=== PATIENT | female | born 1945 | race Caucasian/White ===

== ENCOUNTER 2019-04-23 01:13 | Outpatient (CLI) | payer MEDICARE, OTHER | END 2019-04-23 01:14 | disposition critical access hospital (66) | LOC: EMS 01:13 | PROVIDERS: ATTEND Surgery | DX: R41.82 Altered mental status, unspecified (principal) | CPT/HCPCS: A0425; A0429 ==

== ENCOUNTER 2019-04-23 01:48 | Inpatient (IN) | payer MEDICARE, OTHER ==
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
[2019-04-23] MEDS ORDERED: SODIUM CHLORIDE 0.9% 1,000 ML IV ONE ×2 (02:09→05:41)
[2019-04-23 02:12] LABS: BASOPHILS % (AUTO) 0.5 %; EOSINOPHILS # (AUTO) 0.1 10^3/uL (0.0-0.7); EOSINOPHILS % (AUTO) 0.6 %; HGB - HEMOGLOBIN 14.4 g/dL (12.0-16.0); LYMPHOCYTES # (AUTO) 2.4 10^3/uL (1.5-3.5); LYMPHOCYTES % (AUTO) 27.7 %; MEAN CORPUSCULAR HEMOGLOBIN 26.2 pg (27.0-31.0); MEAN CORPUSCULAR VOLUME 79.5 fL (81.0-99.0); MEAN PLATELET VOLUME 8.9 fL (7.9-10.8); MONOCYTES # (AUTO) 0.7 10^3/uL (0.0-1.0); MONOCYTES % (AUTO) 8.5 %; NEUTROPHILS # (AUTO) 5.3 10^3/uL (1.5-6.6); NEUTROPHILS % (AUTO) 62.3 %; PLT - PLATELET COUNT 280 10^3/uL (130-450); RED CELL DISTRIBUTION WIDTH 14.9 % (12.0-15.0); WHITE BLOOD COUNT 8.5 x10^3/uL (4.8-10.8)
[2019-04-23 02:28] LABS: GLUCOSE, URINE (UA) NEGATIVE (NEGATIVE); KETONES,URINE (UA) TRACE mg/dL (NEGATIVE); LEUKOCYTE ESTERASE, URINE NEGATIVE (NEGATIVE); NITRITE,URINE NEGATIVE (NEGATIVE); OCCULT BLOOD,URINE TRACE-INTA (NEGATIVE); PROTEIN,URINE NEGATIVE (NEGATIVE); UROBILINOGEN,URINE 0.2 (NORMAL) E.U./dL (NORMAL)
[2019-04-23 02:32] LABS: ALBUMIN/GLOBULIN RATIO 1.2 (1.0-2.2); ALKALINE PHOSPHATASE 60 IU/L (42-121); ALT ALANINE AMINOTRANSFERASE < 10 IU/L (10-60); AST ASPARTATE AMINOTRANSFERASE 15 IU/L (10-42); BILIRUBIN,TOTAL 1.3 mg/dL (0.2-1.0); BUN - BLOOD UREA NITROGEN 40 mg/dL (6-20); CALCIUM 9.8 mg/dL (8.5-10.3); CARBON DIOXIDE - CO2 20 mmol/L (21-32); CHLORIDE 92 mmol/L (101-111); GFR - MDRD 24 (>89); GLUCOSE 107 mg/dL (70-100); LIPASE 44 U/L (22-51); SODIUM 128 mmol/L (135-145); TOTAL PROTEIN 7.4 g/dL (6.7-8.2)
[2019-04-23] MEDS ORDERED: FOLIC ACID INJ 1 MG, THIAMINE INJ 100 MG, MAGNESIUM SULFATE 2 GM, MULTIVITAMIN 10 ML in... IV STA ×5 (02:32)
[2019-04-23 02:39] LABS: BILIRUBIN,URINE NEGATIVE (NEGATIVE); CLARITY,URINE CLEAR (CLEAR); ICTOTEST,URINE NEGATIVE
[2019-04-23] MEDS ORDERED: THIAMINE 100 MG/1 ML 2 ML MDV ONE (02:47)
--- NOTE | 2019-04-23 03:00 | XRAY Report ---
Reason: altered LOC Procedure Date: 04/23/2019 Accession Number: [id number] / [id number] Procedure: XR - Chest 1 View X-Ray CPT Code: 52950 FULL RESULT: EXAM: CHEST RADIOGRAPHY EXAM DATE: 04/23/2019 02:41 AM. CLINICAL HISTORY: Altered LOC. COMPARISON: None. TECHNIQUE: 1 view. FINDINGS: Lungs/Pleura: No focal opacities evident. No pleural effusion. No pneumothorax. Mediastinum: Within exam limitations, the cardiomediastinal contour is normal. Other: None. IMPRESSION: Normal single view chest. RADIA
[2019-04-23] MEDS ORDERED: LORazepam 2 MG/ML VIAL IVP STA (03:42)
--- NOTE | 2019-04-23 04:24 | CT Report ---
Reason: altered LOC Procedure Date: 04/23/2019 Accession Number: [id number] / [id number] Procedure: CT - HEAD WO CPT Code: FULL RESULT: EXAM: CT HEAD EXAM DATE: 04/23/2019 04:05 AM. CLINICAL HISTORY: 74-year-old female with altered level of consciousness. COMPARISON: None. TECHNIQUE: Multiaxial CT images were obtained from the foramen magnum to the vertex. Reformats: Sagittal and coronal. IV contrast: None. In accordance with CT protocol optimization, one or more of the following dose reduction techniques were utilized for this exam: automated exposure control, adjustment of mA and/or KV based on patient size, or use of iterative reconstructive technique. FINDINGS: Parenchyma: No intraparenchymal hemorrhage. No evidence of mass, midline shift, or CT findings of infarction. Caro-white differentiation is distinct. There is moderate to severe chronic microvascular change in the white matter bilaterally. Extraaxial Spaces: There is mild age-related generalized cerebral volume loss. No subdural or epidural collections identified. Ventricles: Normal. No hydrocephalus. Sinuses and Orbits: Imaged paranasal sinuses, orbits, and mastoids show no significant abnormality. Bones: No evidence of fracture or calvarial defect. Other: Atherosclerotic calcification is noted in the carotid siphons bilaterally. IMPRESSION: 1. No acute intracranial abnormality. 2. Moderate to severe chronic microvascular change. 3. No intracranial mass lesion, mass-effect, or hydrocephalus. RADIA
[2019-04-23] MEDS ORDERED: SODIUM CHLORIDE FLUSH 0.9% 10 ML SYRINGE IVP PRN (06:26)
[2019-04-23 07:03] LABS: MUDS CUTOFF CONCENTRATIONS CUTOFF CONC BELOW:
[2019-04-23 07:17] LABS: AMPHETAMINE SCREEN,URINE NEGATIVE (NEGATIVE); BENZODIAZEPINES SCREEN, URINE NEGATIVE (NEGATIVE); COCAINE SCREEN URINE NEGATIVE (NEGATIVE); METHADONE SCREEN, URINE NEGATIVE (NEGATIVE); METHAMPHETAMINES SCREEN, URINE NEGATIVE (NEGATIVE); OPIATE SCREEN, URINE NEGATIVE (NEGATIVE); OXYCODONE SCREEN, URINE NEGATIVE (NEGATIVE); PROPOXYPHENE SCREEN, URINE NEGATIVE (NEGATIVE); TRICYCLIC ANTIDEPRESSANT,URINE NEGATIVE (NEGATIVE)
[2019-04-23] MEDS: SODIUM CHLORIDE FLUSH 0.9% 10 ML SYRINGE IVP SCH ×2 (08:13→17:08)
[2019-04-23] MEDS: POLYETHYLENE GLYCOL 3350 17 GM PACKET PO SCH (08:13)
[2019-04-23] MEDS: SODIUM CHLORIDE 0.9% 1,000 ML IV SCH ×4 (08:14→20:53)
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
[2019-04-23] MEDS ORDERED: IOVERSOL 320 50 ML VIAL ONE (14:08)
--- NOTE | 2019-04-23 15:03 | CT Report ---
Reason: abdominal pain Procedure Date: 04/23/2019 Accession Number: [id number] / [id number] Procedure: CT - Abdomen/Pelvis WO CPT Code: FULL RESULT: EXAM: CT ABDOMEN AND PELVIS (CT KUB) EXAM DATE: 04/23/2019 02:33 PM. CLINICAL HISTORY: Abdominal pain. COMPARISONS: None. TECHNIQUE: Routine axial helical CT imaging was performed through the abdomen and pelvis without IV contrast. Reconstructions: Coronal and sagittal. In accordance with CT protocol optimization, one or more of the following dose reduction techniques were utilized for this exam: automated exposure control, adjustment of mA and/or KV based on patient size, or use of iterative reconstructive technique. FINDINGS: Lung Bases: Unremarkable. Viscera: The patient is status post cholecystectomy. There is symmetric bilateral perinephric fat stranding without calculi or aracelis hydroureteronephrosis. Best seen on image 127 series 3 is a linear grouping of calcifications near the left ureterovesical junction without identifiable upstream hydroureteronephrosis. The noncontrast liver, adrenal glands, spleen, and pancreas are unremarkable. There is no bowel obstruction. There is no free air or free fluid. There is no lymphadenopathy by size criteria. A pessary is noted in the pelvis. Atherosclerotic disease without abdominal aortic aneurysm. Other: None. IMPRESSION: Correlate symmetric bilateral perinephric fat stranding and questionable linear calcifications in the region of the left ureterovesical junction to urinalysis, favor vascular etiology of the calcifications. No urinary obstruction is identified. RADIA
[2019-04-23] MEDS ORDERED: LORazepam 0.5 MG TABLET PO PRN (17:14)
[2019-04-24] MEDS ORDERED: amLODIPine 5 MG TABLET ONE (05:44)
[2019-04-24] MEDS ORDERED: SODIUM CHLORIDE 0.9% 1,000 ML IV SCH (09:00)
[2019-04-24] MEDS ORDERED: METOPROLOL SUCCINATE 25 MG TABLET PO SCH (09:00)
[2019-04-24] MEDS: SODIUM CHLORIDE FLUSH 0.9% 10 ML SYRINGE IVP SCH ×3 (09:19→17:13)
[2019-04-24 09:55] LABS: BASOPHILS % (AUTO) 0.3 %; EOSINOPHILS # (AUTO) 0.1 10^3/uL (0.0-0.7); HGB - HEMOGLOBIN 12.6 g/dL (12.0-16.0); LYMPHOCYTES % (AUTO) 21.4 %; MEAN CORPUSCULAR HEMOGLOBIN 26.6 pg (27.0-31.0); MEAN CORPUSCULAR HGB CONC 32.1 g/dL (32.0-36.0); MEAN CORPUSCULAR VOLUME 82.9 fL (81.0-99.0); MEAN PLATELET VOLUME 8.8 fL (7.9-10.8); MONOCYTES # (AUTO) 0.6 10^3/uL (0.0-1.0); NEUTROPHILS # (AUTO) 6.5 10^3/uL (1.5-6.6); PLT - PLATELET COUNT 239 10^3/uL (130-450); RED BLOOD COUNT 4.74 10^6/uL (4.20-5.40); RED CELL DISTRIBUTION WIDTH 15.6 % (12.0-15.0); WHITE BLOOD COUNT 9.2 x10^3/uL (4.8-10.8)
[2019-04-24] MEDS: LISINOPRIL 5 MG TABLET PO SCH (09:55)
[2019-04-24] MEDS: POLYETHYLENE GLYCOL 3350 17 GM PACKET PO SCH (09:55)
[2019-04-24 09:56] LABS: FOLATE 6.36 ng/mL (5.90 - >24.8)
[2019-04-24 10:00] LABS: ALBUMIN 3.2 g/dL (3.2-5.5); ALBUMIN/GLOBULIN RATIO 1.1 (1.0-2.2); ALKALINE PHOSPHATASE 52 IU/L (42-121); ALT ALANINE AMINOTRANSFERASE < 10 IU/L (10-60); AST ASPARTATE AMINOTRANSFERASE 14 IU/L (10-42); BILIRUBIN,TOTAL 0.7 mg/dL (0.2-1.0); BUN - BLOOD UREA NITROGEN 21 mg/dL (6-20); CALCIUM 8.1 mg/dL (8.5-10.3); CARBON DIOXIDE - CO2 22 mmol/L (21-32); CHLORIDE 101 mmol/L (101-111); CREATININE 1.2 mg/dL (0.4-1.0); GFR - MDRD 44 (>89); GLUCOSE 103 mg/dL (70-100); SODIUM 134 mmol/L (135-145); TOTAL PROTEIN 6.1 g/dL (6.7-8.2)
[2019-04-24] MEDS: SODIUM CHLORIDE 0.9% 1,000 ML IV SCH ×2 (11:02→17:13)
--- NOTE | 2019-04-24 16:25 | PROVIDER PROGRESS NOTE ---
Subjective - Prog Note Date Prog Note Date: 04/24/19 - Subjective Pt reports feeling: Improved Subjective: pt is alert and oriented to her self and hospital today, but not the date/time. Zoya Hung tele-psych evaluated pt. as her fax state" consistent with acute delirium", "now starting to improve as underlying issue are being treated", " new onset psychotic disorder would be extremely unlikely given pt's age and lack of prior psychiatric history." Current Medications - Current Medications Current Medications: Active Medications Amlodipine Besylate (Norvasc) 10 mg PO DAILY [facility] Last Admin: 04/25/19 10:31 Dose: Not Given Sodium Chloride (Normal Saline 0.9%) 1,000 mls @ 125 mls/hr IV .Q8H [facility] Stop: 04/26/19 09:59 Lisinopril (Zestril) 5 mg PO DAILY [facility] Last Admin: 04/25/19 10:31 Dose: Not Given Metoprolol Succinate (Toprol Xl) 25 mg PO DAILY [facility] Last Admin: 04/25/19 10:31 Dose: Not Given Olanzapine (Zyprexa Odt) 2.5 mg TL TID PRN PRN Reason: Agitation Polyethylene Glycol (Miralax) 17 gm PO DAILY [facility] Last Admin: 04/25/19 10:31 Dose: Not Given Sodium Chloride (Normal Saline Flush 0.9%) 10 ml IVP PRN PRN PRN Reason: NEEDED PER PROVIDER ORDERS Sodium Chloride (Normal Saline Flush 0.9%) 10 ml IVP 0100,0900,1700 [facility] Last Admin: 04/25/19 15:50 Dose: Not Given Lisinopril 5 mg PO 04/23/19 Nebivolol HCl [Bystolic] 10 mg PO 04/23/19 Objective - Vital Signs/Intake & Output Reviewed Vital Signs: Yes Vital Signs: Vital Signs x48h Temp Pulse Resp BP Pulse Ox 04/24/19 15:54 36.8 C 80 20 143/83 H 100 04/24/19 09:00 36.6 C 79 18 144/118 H 100 Intake & Output: Intake & Output 04/21/19 04/22/19 04/23/19 04/24/19 23:59 23:59 23:59 23:59 Intake Total 5377.7 1350 Output Total 1340 Balance 4037.7 1350 - Objective General Appearance: positive: No acute distress, Alert. negative: Lethargic Eyes Bilateral: positive: Normal inspection, PERRL ENT: positive: ENT inspection nml, Pharynx nml, No signs of dehydration. negative: Purulent nasal drainage, Pharyngeal erythema, Oral lesions Neck: positive: Nml inspection, Thyroid nml, No JVD, Trachea midline. negative: Thyromegaly, Lymphadenopathy (L), Stiff neck, Swelling/bruising, Tracheal deviation Respiratory: positive: Chest non-tender, No respiratory distress, Breath sounds nml. negative: Wheezes, Rales, Rhonchi Cardiovascular: positive: Regular rate & rhythm, No murmur, No gallop. negative: Irregularly irregular, Extrasystoles, Tachycardia, Bradycardia, JVD present, Systolic murmur, Diastolic murmur Peripheral Pulses: 2+ Radial (R), 2+ Radial (L), 2+ Dorsalis pedis (R), 2+ Dorsalis pedis (L) Abdomen: positive: Non-tender, No organomegaly, Nml bowel sounds, No distention. negative: Tenderness, Guarding, Rebound Back: positive: Nml inspection. negative: CVA tenderness (R), CVA tenderness (L) Skin: positive: Color nml, No rash, Warm, Dry. negative: Cyanosis, Diaphoresis, Pallor Extremities: positive: Non-tender, Full ROM, Nml appearance. negative: Calf tenderness, Joint swelling, Yissel's sign/cords Neurologic/Psychiatric: negative: Weakness, Sensory loss, Facial droop, Slurred/abnml speech, Depressed mood/affect - Lab Results Fish Bones: 04/25/19 17:26 04/24/19 08:45 Other Labs: Lab Results x24hrs 04/24/19 04/24/19 04/24/19 Range/Units 09:43 08:45 08:45 WBC 9.2 (4.8-10.8) x10^3/uL RBC 4.74 (4.20-5.40) 10^6/uL Hgb 12.6 (12.0-16.0) g/dL Hct 39.3 (37.0-47.0) % MCV 82.9 (81.0-99.0) fL MCH 26.6 L (27.0-31.0) pg MCHC 32.1 (32.0-36.0) g/dL RDW 15.6 H (12.0-15.0) % Plt Count 239 (130-450) 10^3/uL MPV 8.8 (7.9-10.8) fL Neut # (Auto) 6.5 (1.5-6.6) 10^3/uL Lymph # (Auto) 2.0 (1.5-3.5) 10^3/uL [place] # (Auto) 0.6 (0.0-1.0) 10^3/uL Eos # (Auto) 0.1 (0.0-0.7) 10^3/uL Baso # (Auto) 0.0 (0.0-0.1) 10^3/uL Absolute Nucleated RBC 0.00 x10^3/uL Nucleated RBC % 0.0 /100WBC Sodium (135-145) mmol/L Potassium (3.5-5.0) mmol/L Chloride (101-111) mmol/L Carbon Dioxide (21-32) mmol/L Anion Gap (6-13) BUN (6-20) mg/dL Creatinine (0.4-1.0) mg/dL Estimated GFR (MDRD) (>89) Glucose (70-100) mg/dL Calcium (8.5-10.3) mg/dL Total Bilirubin (0.2-1.0) mg/dL AST (10-42) IU/L ALT (10-60) IU/L Alkaline Phosphatase (42-121) IU/L Total Protein (6.7-8.2) g/dL Albumin (3.2-5.5) g/dL Globulin (2.1-4.2) g/dL Albumin/Globulin Ratio (1.0-2.2) Vitamin B12 1000 H (180-914) pg/mL Folate 6.36 (5.90 - >24.8) ng/mL TSH 2.06 (0.34-5.60) uIU/mL 04/24/19 Range/Units 08:45 WBC (4.8-10.8) x10^3/uL RBC (4.20-5.40) 10^6/uL Hgb (12.0-16.0) g/dL Hct (37.0-47.0) % MCV (81.0-99.0) fL MCH (27.0-31.0) pg MCHC (32.0-36.0) g/dL RDW (12.0-15.0) % Plt Count (130-450) 10^3/uL MPV (7.9-10.8) fL Neut # (Auto) (1.5-6.6) 10^3/uL Lymph # (Auto) (1.5-3.5) 10^3/uL [place] # (Auto) (0.0-1.0) 10^3/uL Eos # (Auto) (0.0-0.7) 10^3/uL Baso # (Auto) (0.0-0.1) 10^3/uL Absolute Nucleated RBC x10^3/uL Nucleated RBC % /100WBC Sodium 134 L (135-145) mmol/L Potassium 3.8 (3.5-5.0) mmol/L Chloride 101 (101-111) mmol/L Carbon Dioxide 22 (21-32) mmol/L Anion Gap 11.0 (6-13) BUN 21 H (6-20) mg/dL Creatinine 1.2 H (0.4-1.0) mg/dL Estimated GFR (MDRD) 44 L (>89) Glucose 103 H (70-100) mg/dL Calcium 8.1 L (8.5-10.3) mg/dL Total Bilirubin 0.7 (0.2-1.0) mg/dL AST 14 (10-42) IU/L ALT < 10 L (10-60) IU/L Alkaline Phosphatase 52 (42-121) IU/L Total Protein 6.1 L (6.7-8.2) g/dL Albumin 3.2 (3.2-5.5) g/dL Globulin 2.9 (2.1-4.2) g/dL Albumin/Globulin Ratio 1.1 (1.0-2.2) Vitamin B12 (180-914) pg/mL Folate (5.90 - >24.8) ng/mL TSH (0.34-5.60) uIU/mL ABX Reporting Has patient been on IV antibiotics over the past 48 hours?: No Sepsis Event Note (H) - Evaluation Current Stage of Sepsis: Ruled out Assessment/Plan - Problem List (1) Psychiatric complaint Impression: 04/24 tele-psych assessed pt to have acute delirium re-orientation frequency, reduced disruption, keep room quite, keep the same nurse staff as possible Pt has not previously been diagnosed with psychiatric condition but pt present more agitation, unstable mental status. consult with psychiatrist with tele-psychiatrist, will followup (2) Dehydration, severe Conclusion/Plan: 04/24 significant improved. creatinine 1.2 now continue hydration, and lab monitor pt present BUN 40, creatinine 2. but pt's report pt did not have hx of kidney problem. report she had a poor intake. it appear from dehydration hydration with IVF of NS lab monitor (3) Hyponatremia Conclusion/Plan: 04/24 significant improved. Na is 134 now continue IVF of NS, lab monitor it appear from pre-rental macho hydration with NS, lab monitor (4) Weakness Conclusion/Plan: 04/24 improved, continue PT/OT pt present severe dehydration, hyponatremia, malnutrition, and weakness consult with PT/OT, will followup (5) Malnutrition Conclusion/Plan: 04/24, consulted with banquet steward, will followup pt is reported nutrition intake less than 50% of recommended intake for 2 weeks or more consult with nutrition, nurse and stall support (6) HTN (hypertension) Conclusion/Plan: 04/24 stable. continue vital monitor pt present HTN with hx of HTN reconcile of home BP meds vital monitor
[2019-04-24] MEDS ORDERED: OLANZapine ODT 5 MG TABLET TL PRN (17:01)
[2019-04-25] MEDS: SODIUM CHLORIDE FLUSH 0.9% 10 ML SYRINGE IVP SCH ×3 (00:48→15:50)
[2019-04-25] MEDS: amLODIPine 5 MG TABLET PO SCH (10:31)
[2019-04-25] MEDS: LISINOPRIL 5 MG TABLET PO SCH (10:31)
[2019-04-25] MEDS: METOPROLOL SUCCINATE 25 MG TABLET PO SCH (10:31)
[2019-04-25] MEDS: POLYETHYLENE GLYCOL 3350 17 GM PACKET PO SCH (10:31)
--- NOTE | 2019-04-25 16:35 | PROVIDER PROGRESS NOTE ---
Subjective - Prog Note Date Prog Note Date: 04/25/19 - Subjective Pt reports feeling: Worse Subjective: pt refused to have lab test for twice. pt is confused today and told me " [place] Nurse report she tried to call police department on last night. Nurse report pt attempted to pull off her IV port, nurse can not treat pt. discussed with pt's two sons. Son state he will come to see her mother and will try persuade pt to followup medical advise [facility] evaluated pt, pt is required to be remained at hospital. [facility] will find mental health institution for pt Current Medications - Current Medications Current Medications: Active Medications Amlodipine Besylate (Norvasc) 10 mg PO DAILY [facility] Last Admin: 04/25/19 10:31 Dose: Not Given Sodium Chloride (Normal Saline 0.9%) 1,000 mls @ 125 mls/hr IV .Q8H DHARMESH Stop: 04/26/19 09:59 Lisinopril (Zestril) 5 mg PO DAILY [facility] Last Admin: 04/25/19 10:31 Dose: Not Given Metoprolol Succinate (Toprol Xl) 25 mg PO DAILY [facility] Last Admin: 04/25/19 10:31 Dose: Not Given Olanzapine (Zyprexa Odt) 2.5 mg TL TID PRN PRN Reason: Agitation Polyethylene Glycol (Miralax) 17 gm PO DAILY [facility] Last Admin: 04/25/19 10:31 Dose: Not Given Sodium Chloride (Normal Saline Flush 0.9%) 10 ml IVP PRN PRN PRN Reason: NEEDED PER PROVIDER ORDERS Sodium Chloride (Normal Saline Flush 0.9%) 10 ml IVP 0100,0900,1700 [facility] Last Admin: 04/25/19 15:50 Dose: Not Given Lisinopril 5 mg PO 04/23/19 Nebivolol HCl [Bystolic] 10 mg PO 04/23/19 Objective - Vital Signs/Intake & Output Vital Signs: Vital Signs x48h Temp Pulse Resp BP Pulse Ox 04/25/19 16:21 36.5 C 105 H 16 108/72 100 Intake & Output: Intake & Output 04/22/19 04/23/19 04/24/19 04/25/19 23:59 23:59 23:59 23:59 Intake Total 5377.7 3118.333 315 Output Total 1340 200 Balance 4037.7 3118.333 115 - Objective General Appearance: positive: No acute distress, Alert. negative: Lethargic Eyes Bilateral: positive: Normal inspection, PERRL, No lid inflammation, Conjunctivae nml ENT: positive: ENT inspection nml, Pharynx nml, No signs of dehydration. negative: Purulent nasal drainage, Pharyngeal erythema, Oral lesions Neck: positive: Nml inspection, Thyroid nml, No JVD, Trachea midline. negative: Thyromegaly, Lymphadenopathy (R), Lymphadenopathy (L), Stiff neck, Swelling/bruising, Tracheal deviation Respiratory: positive: Chest non-tender, No respiratory distress, Breath sounds nml. negative: Wheezes, Rales, Rhonchi Cardiovascular: positive: Regular rate & rhythm, No murmur, No gallop. negative: Irregularly irregular, Extrasystoles, Tachycardia, Bradycardia, JVD present, Systolic murmur, Diastolic murmur Peripheral Pulses: 2+ Radial (R), 2+ Radial (L), 2+ Dorsalis pedis (R), 2+ Dorsalis pedis (L) Abdomen: positive: Non-tender, No organomegaly, Nml bowel sounds, No distention. negative: Tenderness, Guarding, Rebound Back: positive: Nml inspection. negative: CVA tenderness (R), CVA tenderness (L) Skin: positive: Color nml, No rash, Warm, Dry. negative: Cyanosis, Diaphoresis, Pallor Extremities: positive: Non-tender, Full ROM, Nml appearance. negative: Calf tenderness, Joint swelling, Yissel's sign/cords Neurologic/Psychiatric: positive: Sensation nml. negative: Weakness, Sensory loss, Facial droop, Slurred/abnml speech, Depressed mood/affect - Lab Results Fish Bones: 04/26/19 07:06 04/26/19 07:06 ABX Reporting Has patient been on IV antibiotics over the past 48 hours?: No Sepsis Event Note (H) - Evaluation Current Stage of Sepsis: Ruled out Assessment/Plan - Problem List (1) Psychiatric complaint Impression: 04/25 we will followup [facility] instruction to retain pt until find the placement pt refused to treatment, called pt's sons will re-oriented, continue nurse support if pt continue to refused to be treated, this will be harmed to her. pt was diagnosis to have Delirium. According to [facility] instruction, pt may be restrained for treatment. pt's family understood that. 04/24 tele-psych assessed pt to have acute delirium re-orientation frequency, reduced disruption, keep room quite, keep the same nurse staff as possible Pt has not previously been diagnosed with psychiatric condition but pt present more agitation, unstable mental status. consult with psychiatrist with tele-psychiatrist, will followup (2) Dehydration, severe Conclusion/Plan: 04/25 continue hydration with IVF of NC, lab monitor. pt refused to be treated now. will either restrain or family persuade pt to be treated 04/24 significant improved. creatinine 1.2 now continue hydration, and lab monitor pt present BUN 40, creatinine 2. but pt's report pt did not have hx of kidney problem. report she had a poor intake. it appear from dehydration hydration with IVF of NS lab monitor (3) Hyponatremia Conclusion/Plan: 04/25 pt refused to have lab test, called pt's sons, will let pt have lab test 04/24 significant improved. Na is 134 now continue IVF of NS, lab monitor it appear from pre-rental macho hydration with NS, lab monitor (4) Weakness Conclusion/Plan: 04/24 improved, continue PT/OT pt present severe dehydration, hyponatremia, malnutrition, and weakness consult with PT/OT, will followup (5) Malnutrition Conclusion/Plan: 04/24, consulted with manager neonatal, will followup pt is reported nutrition intake less than 50% of recommended intake for 2 weeks or more consult with nutrition, nurse and stall support (6) HTN (hypertension) Conclusion/Plan: 04/24 stable. continue vital monitor pt present HTN with hx of HTN reconcile of home BP meds vital monitor
[2019-04-25 17:36] LABS: BASOPHILS # (AUTO) 0.1 10^3/uL (0.0-0.1); BASOPHILS % (AUTO) 0.4 %; EOSINOPHILS % (AUTO) 0.1 %; HGB - HEMOGLOBIN 14.2 g/dL (12.0-16.0); LYMPHOCYTES # (AUTO) 1.5 10^3/uL (1.5-3.5); LYMPHOCYTES % (AUTO) 12.1 %; MEAN CORPUSCULAR HEMOGLOBIN 27.7 pg (27.0-31.0); MEAN CORPUSCULAR HGB CONC 33.6 g/dL (32.0-36.0); MEAN CORPUSCULAR VOLUME 82.3 fL (81.0-99.0); MEAN PLATELET VOLUME 8.6 fL (7.9-10.8); MONOCYTES # (AUTO) 0.7 10^3/uL (0.0-1.0); MONOCYTES % (AUTO) 5.5 %; NEUTROPHILS % (AUTO) 81.3 %; PLT - PLATELET COUNT 284 10^3/uL (130-450); RED BLOOD COUNT 5.13 10^6/uL (4.20-5.40); RED CELL DISTRIBUTION WIDTH 15.8 % (12.0-15.0); WHITE BLOOD COUNT 12.3 x10^3/uL (4.8-10.8)
[2019-04-25 17:58] LABS: ALBUMIN 4.1 g/dL (3.2-5.5); ALBUMIN/GLOBULIN RATIO 1.1 (1.0-2.2); ALKALINE PHOSPHATASE 74 IU/L (42-121); ALT ALANINE AMINOTRANSFERASE < 10 IU/L (10-60); AST ASPARTATE AMINOTRANSFERASE 19 IU/L (10-42); BILIRUBIN,TOTAL 1.6 mg/dL (0.2-1.0); BUN - BLOOD UREA NITROGEN 17 mg/dL (6-20); CALCIUM 9.5 mg/dL (8.5-10.3); CARBON DIOXIDE - CO2 21 mmol/L (21-32); CHLORIDE 102 mmol/L (101-111); CREATININE 1.7 mg/dL (0.4-1.0); GFR - MDRD 30 (>89); GLUCOSE 131 mg/dL (70-100); SODIUM 135 mmol/L (135-145); TOTAL PROTEIN 7.7 g/dL (6.7-8.2)
[2019-04-25] MEDS ORDERED: SODIUM CHLORIDE 0.9% 1,000 ML IV SCH (18:00)
[2019-04-25] MEDS ORDERED: LORazepam 2 MG/ML VIAL IVP PRN (21:43)
[2019-04-25] MEDS ORDERED: OLANZapine ODT 5 MG TABLET TL PRN (21:44)
[2019-04-25] MEDS: SODIUM CHLORIDE 0.9% 1,000 ML IV SCH (23:40)
[2019-04-26] MEDS: SODIUM CHLORIDE FLUSH 0.9% 10 ML SYRINGE IVP SCH ×3 (01:19→17:43)
[2019-04-26] MEDS: SODIUM CHLORIDE 0.9% 1,000 ML IV SCH ×3 (06:54→21:36)
[2019-04-26 07:13] LABS: BASOPHILS % (AUTO) 0.5 %; EOSINOPHILS # (AUTO) 0.1 10^3/uL (0.0-0.7); EOSINOPHILS % (AUTO) 0.9 %; HGB - HEMOGLOBIN 12.1 g/dL (12.0-16.0); LYMPHOCYTES # (AUTO) 2.1 10^3/uL (1.5-3.5); LYMPHOCYTES % (AUTO) 26.4 %; MEAN CORPUSCULAR HEMOGLOBIN 27.9 pg (27.0-31.0); MEAN CORPUSCULAR HGB CONC 33.9 g/dL (32.0-36.0); MEAN CORPUSCULAR VOLUME 82.4 fL (81.0-99.0); MEAN PLATELET VOLUME 8.5 fL (7.9-10.8); MONOCYTES # (AUTO) 0.6 10^3/uL (0.0-1.0); MONOCYTES % (AUTO) 7.1 %; NEUTROPHILS # (AUTO) 5.1 10^3/uL (1.5-6.6); NEUTROPHILS % (AUTO) 64.8 %; PLT - PLATELET COUNT 213 10^3/uL (130-450); RED BLOOD COUNT 4.33 10^6/uL (4.20-5.40); WHITE BLOOD COUNT 7.8 x10^3/uL (4.8-10.8)
[2019-04-26 07:33] LABS: ALBUMIN 3.2 g/dL (3.2-5.5); ALKALINE PHOSPHATASE 61 IU/L (42-121); ALT ALANINE AMINOTRANSFERASE < 10 IU/L (10-60); AST ASPARTATE AMINOTRANSFERASE 15 IU/L (10-42); BILIRUBIN,TOTAL 1.1 mg/dL (0.2-1.0); BUN - BLOOD UREA NITROGEN 22 mg/dL (6-20); CALCIUM 8.7 mg/dL (8.5-10.3); CARBON DIOXIDE - CO2 22 mmol/L (21-32); CHLORIDE 104 mmol/L (101-111); GFR - MDRD 24 (>89); GLUCOSE 82 mg/dL (70-100); SODIUM 138 mmol/L (135-145); TOTAL PROTEIN 6.5 g/dL (6.7-8.2)
[2019-04-26] MEDS: METOPROLOL SUCCINATE 25 MG TABLET PO SCH (08:02)
[2019-04-26] MEDS: amLODIPine 5 MG TABLET PO SCH (08:02)
[2019-04-26] MEDS: LISINOPRIL 5 MG TABLET PO SCH (08:02)
[2019-04-26] MEDS: POLYETHYLENE GLYCOL 3350 17 GM PACKET PO SCH (08:04)
--- NOTE | 2019-04-26 12:56 | PROVIDER PROGRESS NOTE ---
Subjective - Prog Note Date Prog Note Date: 04/26/19 - Subjective Subjective: pt is still some confused. pt agree to have treatment for her now. Current Medications - Current Medications Current Medications: Active Medications Amlodipine Besylate (Norvasc) 10 mg PO DAILY [facility] Last Admin: 04/26/19 08:02 Dose: 10 mg Sodium Chloride (Normal Saline 0.9%) 1,000 mls @ 125 mls/hr IV .Q8H [facility] Last Admin: 04/26/19 06:54 Dose: 125 mls/hr Lisinopril (Zestril) 5 mg PO DAILY [facility] Last Admin: 04/26/19 08:02 Dose: 5 mg Lorazepam (Ativan Inj (Vial)) 1 mg IVP Q2H PRN PRN Reason: Agitation Metoprolol Succinate (Toprol Xl) 25 mg PO DAILY [facility] Last Admin: 04/26/19 08:02 Dose: 25 mg Olanzapine (Zyprexa Odt) 5 mg TL TID PRN PRN Reason: Agitation Last Admin: 04/26/19 08:03 Dose: 5 mg Polyethylene Glycol (Miralax) 17 gm PO DAILY [facility] Last Admin: 04/26/19 08:04 Dose: Not Given Sodium Chloride (Normal Saline Flush 0.9%) 10 ml IVP PRN PRN PRN Reason: NEEDED PER PROVIDER ORDERS Sodium Chloride (Normal Saline Flush 0.9%) 10 ml IVP 0100,0900,1700 [facility] Last Admin: 04/26/19 08:05 Dose: Not Given Lisinopril 5 mg PO 04/23/19 Nebivolol HCl [Bystolic] 10 mg PO 04/23/19 Objective - Vital Signs/Intake & Output Reviewed Vital Signs: Yes Vital Signs: Vital Signs x48h Temp Pulse Resp BP Pulse Ox 04/26/19 08:23 37 C 80 18 183/76 H 100 Intake & Output: Intake & Output 04/23/19 04/24/19 04/25/19 04/26/19 23:59 23:59 23:59 23:59 Intake Total 5377.7 3118.849 609 2747 Output Total 1340 200 Balance 4037.7 3118.562 625 2273 - Objective General Appearance: positive: No acute distress, Alert. negative: Lethargic Eyes Bilateral: positive: Normal inspection, PERRL, No lid inflammation, Conjunctivae nml ENT: positive: ENT inspection nml, Pharynx nml, No signs of dehydration. negative: Purulent nasal drainage, Pharyngeal erythema, Oral lesions Neck: positive: Nml inspection, Thyroid nml, No JVD, Trachea midline. negative: Thyromegaly, Lymphadenopathy (R), Lymphadenopathy (L), Stiff neck, Swelling/bruising, Tracheal deviation Respiratory: positive: Chest non-tender, No respiratory distress, Breath sounds nml. negative: Wheezes, Rales, Rhonchi Cardiovascular: positive: Regular rate & rhythm, No murmur, No gallop. negative: Irregularly irregular, Extrasystoles, Tachycardia, Bradycardia, JVD present, Systolic murmur, Diastolic murmur Peripheral Pulses: 2+ Radial (R), 2+ Radial (L), 2+ Dorsalis pedis (R), 2+ Dorsalis pedis (L) Abdomen: positive: Non-tender, No organomegaly, Nml bowel sounds, No distention. negative: Tenderness, Guarding, Rebound Back: positive: Nml inspection. negative: CVA tenderness (R), CVA tenderness (L) Skin: positive: Color nml, No rash, Warm, Dry. negative: Cyanosis, Diaphoresis, Pallor Extremities: positive: Non-tender, Full ROM, Nml appearance. negative: Calf tenderness, Joint swelling, Yissel's sign/cords Neurologic/Psychiatric: negative: Weakness, Sensory loss, Facial droop, Slurred/abnml speech, Depressed mood/affect - Lab Results Fish Bones: 04/26/19 07:06 04/26/19 07:06 Other Labs: Lab Results x24hrs 04/26/19 04/26/19 04/25/19 Range/Units 07:06 07:06 17:26 WBC 7.8 (4.8-10.8) x10^3/uL RBC 4.33 (4.20-5.40) 10^6/uL Hgb 12.1 (12.0-16.0) g/dL Hct 35.7 L (37.0-47.0) % MCV 82.4 (81.0-99.0) fL MCH 27.9 (27.0-31.0) pg MCHC 33.9 (32.0-36.0) g/dL RDW 16.0 H (12.0-15.0) % Plt Count 213 (130-450) 10^3/uL MPV 8.5 (7.9-10.8) fL Neut # (Auto) 5.1 (1.5-6.6) 10^3/uL Lymph # (Auto) 2.1 (1.5-3.5) 10^3/uL [place] # (Auto) 0.6 (0.0-1.0) 10^3/uL Eos # (Auto) 0.1 (0.0-0.7) 10^3/uL Baso # (Auto) 0.0 (0.0-0.1) 10^3/uL Absolute Nucleated RBC 0.00 x10^3/uL Nucleated RBC % 0.0 /100WBC Sodium 138 135 (135-145) mmol/L Potassium 3.5 3.8 (3.5-5.0) mmol/L Chloride 104 102 (101-111) mmol/L Carbon Dioxide 22 21 (21-32) mmol/L Anion Gap 12.0 12.0 (6-13) BUN 22 H 17 (6-20) mg/dL Creatinine 2.0 H 1.7 H (0.4-1.0) mg/dL Estimated GFR (MDRD) 24 L 30 L (>89) Glucose 82 131 H (70-100) mg/dL Calcium 8.7 9.5 (8.5-10.3) mg/dL Total Bilirubin 1.1 H 1.6 H (0.2-1.0) mg/dL AST 15 19 (10-42) IU/L ALT < 10 L < 10 L (10-60) IU/L Alkaline Phosphatase 61 74 (42-121) IU/L Total Protein 6.5 L 7.7 (6.7-8.2) g/dL Albumin 3.2 4.1 (3.2-5.5) g/dL Globulin 3.3 3.6 (2.1-4.2) g/dL Albumin/Globulin Ratio 1.0 1.1 (1.0-2.2) 04/25/19 Range/Units 17:26 WBC 12.3 H (4.8-10.8) x10^3/uL RBC 5.13 (4.20-5.40) 10^6/uL Hgb 14.2 (12.0-16.0) g/dL Hct 42.2 (37.0-47.0) % MCV 82.3 (81.0-99.0) fL MCH 27.7 (27.0-31.0) pg MCHC 33.6 (32.0-36.0) g/dL RDW 15.8 H (12.0-15.0) % Plt Count 284 (130-450) 10^3/uL MPV 8.6 (7.9-10.8) fL Neut # (Auto) 10.0 H (1.5-6.6) 10^3/uL Lymph # (Auto) 1.5 (1.5-3.5) 10^3/uL [place] # (Auto) 0.7 (0.0-1.0) 10^3/uL Eos # (Auto) 0.0 (0.0-0.7) 10^3/uL Baso # (Auto) 0.1 (0.0-0.1) 10^3/uL Absolute Nucleated RBC 0.00 x10^3/uL Nucleated RBC % 0.0 /100WBC Sodium (135-145) mmol/L Potassium (3.5-5.0) mmol/L Chloride (101-111) mmol/L Carbon Dioxide (21-32) mmol/L Anion Gap (6-13) BUN (6-20) mg/dL Creatinine (0.4-1.0) mg/dL Estimated GFR (MDRD) (>89) Glucose (70-100) mg/dL Calcium (8.5-10.3) mg/dL Total Bilirubin (0.2-1.0) mg/dL AST (10-42) IU/L ALT (10-60) IU/L Alkaline Phosphatase (42-121) IU/L Total Protein (6.7-8.2) g/dL Albumin (3.2-5.5) g/dL Globulin (2.1-4.2) g/dL Albumin/Globulin Ratio (1.0-2.2) ABX Reporting Has patient been on IV antibiotics over the past 48 hours?: No Sepsis Event Note (H) - Evaluation Current Stage of Sepsis: Ruled out Assessment/Plan - Problem List (1) Psychiatric complaint Impression: 04/26 pt is some confused but seems better than yesterday. pt agree to have treatment, no need restrain now. continue closely monitor and support pt, and re-oriented pt 04/25 we will [place] [facility] [place] until find the placement pt refused to treatment, called pt's sons will re-oriented, continue nurse support if pt continue to refused to be treated, this will be harmed to her. pt was diagnosis to have Delirium. According to [facility] [place], pt may be restrained for treatment. pt's family understood that. 04/24 tele-psych assessed pt to have acute delirium re-orientation frequency, reduced disruption, keep room quite, keep the same nurse staff as possible Pt has not previously been diagnosed with psychiatric condition but pt present more agitation, unstable mental status. consult with psychiatrist with tele-psychiatrist, will followup (2) Dehydration, severe Conclusion/Plan: 04/26 new test reveal creatinine increase to 2.0. pt refused to have IVF of NS before. today she agree to have treatment continue IVF of NS lab monitor 04/25 continue hydration with IVF of NC, lab monitor. pt refused to be treated now. will either restrain or family persuade pt to be treated 04/24 significant improved. creatinine 1.2 now continue hydration, and lab monitor pt present BUN 40, creatinine 2. but pt's report pt did not have hx of kidney problem. report she had a poor intake. it appear from dehydration hydration with IVF of NS lab monitor (3) Hyponatremia Conclusion/Plan: 04/26 Na is normal now, resolved 04/25 pt refused to have lab test, called pt's sons, will let pt have lab test 04/24 significant improved. Na is 134 now continue IVF of NS, lab monitor it appear from pre-rental macho hydration with NS, lab monitor (4) Weakness Conclusion/Plan: 04/24 improved, continue PT/OT pt present severe dehydration, hyponatremia, malnutrition, and weakness consult with PT/OT, will followup (5) Malnutrition Conclusion/Plan: 04/24, consulted with shed boss, will followup pt is reported nutrition intake less than 50% of recommended intake for 2 weeks or more consult with nutrition, nurse and stall support (6) HTN (hypertension) Conclusion/Plan: 04/24 stable. continue vital monitor pt present HTN with hx of HTN reconcile of home BP meds vital monitor
[2019-04-26] MEDS ORDERED: hydrALAZINE INJ 20 MG/ML VIAL IVP PRN (19:00)
[2019-04-27] MEDS: SODIUM CHLORIDE FLUSH 0.9% 10 ML SYRINGE IVP SCH ×3 (00:01→17:13)
[2019-04-27] MEDS: SODIUM CHLORIDE 0.9% 1,000 ML IV SCH (03:59)
[2019-04-27 05:27] LABS: ALBUMIN/GLOBULIN RATIO 1.1 (1.0-2.2); BILIRUBIN,TOTAL 0.7 mg/dL (0.2-1.0); CREATININE 1.3 mg/dL (0.4-1.0); TOTAL PROTEIN 5.8 g/dL (6.7-8.2)
[2019-04-27] MEDS ORDERED: SODIUM CHLORIDE 0.9% 1,000 ML IV SCH (08:17)
[2019-04-27] MEDS: amLODIPine 5 MG TABLET PO SCH (08:44)
[2019-04-27] MEDS: LISINOPRIL 5 MG TABLET PO SCH (08:44)
[2019-04-27] MEDS: METOPROLOL SUCCINATE 25 MG TABLET PO SCH (08:44)
[2019-04-27] MEDS: POLYETHYLENE GLYCOL 3350 17 GM PACKET PO SCH (08:56)
--- NOTE | 2019-04-27 16:21 | Discharge Plan ---
"Discharge Plan for SNF / [facility] - Discharge Plan And Transition Orders Problem Reviewed?: Yes Disposition: 03 SNF DC/Xfer Condition: Poor Allergies and Adverse Reactions: Allergies Allergy/AdvReac Type Severity Reaction Status Date / Time Penicillins Allergy Unknown Unknown Verified 04/23/19 02:17 Health Concerns: dehydration, pyschiatric complaint, HTN Plan of Treatment: keep pt enough hydration, followup psychiatrist for further evaluation and treatment, reconcile home blood pressure meds. Care Goals: stabilization of pt's medical condition Assessment: pt's image studies of CT of head, CT of abdomen and pelvis, and CXR were unremarkable. - SNF / CUSTODIAL Transition Orders Admit to (Facility): [facility] Under the care of (Name): medical provider of [facility] Discharge Diagnosis: dehydration, psychiatric complaint, hyponatremia, malnutrition, HTN Medicare Certification Statement: I do not certify that [facility] alf care is medically necessary on a continuing basis for any of the conditions for which she/he is receiving care during hospitalization. Notify PCP of admission and forward orders to primary provider for signature. Weight on admission and: Daily Call PCP immediately if weight increases by: 2 kg Other Notification Orders: Call PCP immediately if patient develops dyspnea, chest pain/tightness or edema. House Bowel Program: Yes Additional Bowel Program Orders: If no BM after 2 days, nurse may give M.O.M. 30ml PO PRN and/or ducolax Supp 1 [place] and/or MARK 250mg P.O., and/or senna 1-2 tabs PO. On day 3 nurse may give repeat above order until residents constipation is resolved. Annual Influenza Vaccine (between Jun 30 and January 27): Yes Two-step PPD per [facility] [phone] or approved exception documents: Yes Treatments & Other Orders: pt may followup medical provider when pt is arrival to [facility], followup psychiatrist for further evaluation and treatment. keeping pt hydration is highly recommended Lab Tests or X-ray Orders: have BMP in one week Medication Orders: PLEASE REFER TO THE DISCHARGE MEDICATION LIST. Insulin Orders?: No - Medications New Prescriptions: amLODIPine [Norvasc] 10 mg PO DAILY #10 tablet OLANZapine ODT [Zyprexa Odt] 2.5 mg TL TID PRN #10 tablet PRN Reason: Agitation - Diet Type: Geriatric Texture: Regular Liquids: Thin May have monthly special meal: Yes - Therapies | Activity Rehabilitation Potential: Maximize functional status Activity: Activity as Tolerated Additional Instructions: pt may followup medical provider when pt is arrival to [facility], followup psychiatrist for further evaluation and treatment. keeping pt hydration is highly recommended"
--- NOTE | 2019-04-27 16:48 | DISCHARGE SUMMARY ---
Discharge Summary Discharge Date: 04/27/19 Discharging Provider: BONILLA Condition at Discharge: Poor Discharge Disposition: 03 SNF DC/Xfer Discharge Facility Name: [facility] - DIAGNOSES Admission Diagnoses: (1) Psychiatric complaint (2) Dehydration, severe (3) Hyponatremia (4) Weakness (5) Malnutrition (6) HTN (hypertension) Discharge Diagnoses with Status of Each Condition: (1) Psychiatric complaint Today pt is alert and oriented to self, place, and time. [facility] DCR agent came to hospital to assess pt. He reported to me by his assessment, he decider pt is not transferred to behaviour institution, instead of seeking nurse facility to support pt. lead worker of housekeeping and laundry Elif and DCR reported to me, they met and assessed pt and pt's need, and communicated and discussed with pt's family, all agreed pt will be d/c to [facility], there has no any issue in the discharge process. pt had tele-psych assessment. Dr. Graham, [facility] tele-psych, evaluated pt. as her fax state" consistent with acute delirium", "now starting to improve as underlying issue are being treated", "new onset psychotic disorder would be e xtremely unlikely given pt's age and lack of prior psychiatric history." zyprexa was recommended by Dr. Graham for pt's PRN agitation (2) Dehydration, severe consulted with nutrition. Today pt is alert and oriented to self, place, and time. I personally discussed with pt today. Advise pt it is very important for her to keep hydration, she verbally stated she understood and will keep her hydration. I also write the recommendation to [facility], keeping pt hydration is high recommended (3) Hyponatremia resolved (4) Weakness significantly improved. pt can walk and go to bathroom, do ADLs without problem (5) Malnutrition consulted with nutrition, advise pt keep up her nutrition, she stated she understood and will do (6) HTN (hypertension) pt refused to be treated at hospital for multiple times. Now she is stable. pt is prescribed new meds Norvasc and reconcile her home meds - HPI History of Present Illness: Ms Espinosa is a 74-yrs old female with a past medical history significant for HTN, who present ER for weakness, agitation. Pt is a poor historian. pt told me she has brain bleed and shingles at her head. However, CT of her brain today reveals unremarkable, there is no shingles at her head. Call was made to her , Mr. Lucas Espinosa. He report pt can independently ambulates in the home in the past, and she can get up and get to the bathroom with the use of her cane by herself. but in the last 3-week pt became more weakness and she can not do it by her own. In the last night, her report pt became very agitated, verbally abused to him and throw out the thing to him and verbally state to him " I will kill you." Her report pt became gradually more paranoid and make stories to him, and "try to make me a very bad personalty." report Pt has not previously been diagnosed with psychiatric condition but pt has a sister who is schizophrenic. pt's intake of fluids is poor, did not eat well, and she has been eating mostly depending on ice cream. report She usually does not leave the house but if she leave the house the car must be darkened. Pt report she had blue glasses to cover her eye and she is "allergy to lights". CT of head and CXR reveals unremarkable. Lab test reveals significantly elevated creatinine to 2.0. Pt's report pt did not have hx of kidney disease, Sodium is 129. Pt's CBC, UA and UDS are unremarkable. pt is admitted in observation unit for evaluation and treatment of weakness, dehydration and acute on chronic psychological problem. - CONSULTS | PROCEDURES Consultations: Zoya Hung, psychiatrist Procedures: tele-psych - HOSPITAL COURSE Hospital Course: pt was admitted for weakness, agitation. pt was found to have significantly dehydration and hyponatremia, and behavior agitation. I was treated with INF of NS, and lab monitor, and pt had tele-psych evaluation. pt's dehydration status was corrected but pt refused to have further treatment. The conditions were reported to pt's family. With pt's family involvement, Finally pt agreed to have treatment. Pt's dehydration status was corrected again, hyponatremia was resol jose juan. pt and her discharged facility was advised that keeping pt hydration is high recommended. pt had tele-psych assessment. Zoya Hung tele-psych, evaluated pt. as her fax state" consistent with acute delirium", "now starting to improve as underlying issue are being treated", "new onset psychotic disorder would be extremely unlikely given pt's age and lack of prior psychiatric history." - ALLERGIES Allergies/Adverse Reactions: Allergies Allergy/AdvReac Type Severity Reaction Status Date / Time Penicillins Allergy Unknown Unknown Verified 04/23/19 02:17 - MEDICATIONS Home Medications: Ambulatory Orders Medication Instructions Recorded Confirmed Nebivolol HCl [Bystolic] 10 mg PO DAILY 04/23/19 04/27/19 Lisinopril [Prinivil] 5 mg PO DAILY 04/27/19 04/27/19 OLANZapine ODT [Zyprexa Odt] 2.5 mg TL TID PRN #10 tablet 04/27/19 amLODIPine [Norvasc] 10 mg PO DAILY #10 tablet 04/27/19 - PHYSICAL EXAM AT DISCHARGE General Appearance: positive: No acute distress, Alert. negative: Lethargic Eyes Bilateral: positive: Normal inspection, PERRL, EOMI, No lid inflammation, Conjunctivae nml ENT: positive: ENT inspection nml, Pharynx nml, No signs of dehydration. negative: Purulent nasal drainage, Pharyngeal erythema, Oral lesions Neck: positive: Nml inspection, Thyroid nml, No JVD, Trachea midline. negative: Thyromegaly, Lymphadenopathy (R), Lymphadenopathy (L), Stiff neck, Swelling/bruising, Tracheal deviation Respiratory: positive: Chest non-tender, No respiratory distress, Breath sounds nml. negative: Wheezes, Rales, Rhonchi Cardiovascular: positive: Regular rate & rhythm, No murmur, No gallop. nega tive: Irregularly irregular, Extrasystoles, Tachycardia, Bradycardia, JVD present, Systolic murmur, Diastolic murmur Peripheral Pulses: positive: 2+ Abdomen: positive: Non-tender, No organomegaly, Nml bowel sounds, No distention. negative: Tenderness, Guarding, Rebound Back: positive: Nml inspection. negative: CVA tenderness (R), CVA tenderness (L) Skin: positive: Color nml, Warm, Dry. negative: Cyanosis, Diaphoresis, Pallor Extremities: positive: Non-tender, Full ROM, Nml appearance. negative: Calf tenderness, Joint swelling, Yissel's sign/cords Neurologic/Psychiatric: positive: Oriented x3, Motor nml, Sensation nml. negative: Weakness, Sensory loss, Facial droop, Slurred/abnml speech, Depressed mood/affect - LABS Result Diagrams: 04/26/19 07:06 04/27/19 05:00 - SEPSIS Current Stage of Sepsis: Ruled out - FOLLOW UP Follow Up: pt may followup medical provider when pt is arrival to [place], followup psychiatrist for further evaluation and treatment. keeping pt hydration is highly recommended - TIME SPENT Time Spent in Discharge (Minutes): 60
[2019-04-27 18:16] VITALS: BP 158/81
[2019-04-28] MEDS ORDERED: NEBIVOLOL HCL 10 MG PO SCH (09:00)
== END 2019-04-27 18:49 | disposition home or self-care (01) | DRG 641 ==
LOC: EDUNIT# → ED 01:48 → MS2 06:22 → OBSVTOIN 04-25 18:31
PROVIDERS: ADMIT Nurse Practitioner Gerontology; ATTEND Nurse Practitioner Gerontology
DX: E86.0 Dehydration (principal); N17.9 Acute kidney failure, unspecified; G93.41 Metabolic encephalopathy; E46 Unspecified protein-calorie malnutrition; F05 Delirium due to known physiological condition; E87.1 Hypo-osmolality and hyponatremia; R40.2412 Glasgow coma scale score 13-15, at arrival to emergency department; I10 Essential (primary) hypertension; R45.850 Homicidal ideations; Z78.1 Physical restraint status; Z79.899 Other long term (current) drug therapy; Z91.14 Patient's other noncompliance with medication regimen; Z91.19 Patient's noncompliance with other medical treatment and regimen; Z81.8 Family history of other mental and behavioral disorders
CPT/HCPCS: 36415; 51702; 70450; 71045; 74176; 80053; 81003; 82607; 82746; 83605; 83690; 84443; 84484; 85025; 87040; 93005; 96361; 96365; 96375; 99284; 99285; A9270; G0378; J2060; J3411; 80306; 81001; 87086